=== PATIENT | female | born 1975 | race Caucasian/White ===

== ENCOUNTER 2017-01-26 08:40 | Emergency (ER) | payer OTHER ==
[2017-01-26 08:54] VITALS: BP 123/78
--- NOTE | 2017-01-26 09:24 | UC ---
Throat Pain/Nasal [place] HPI - HPI Summary HPI Summary: complaint of sore throat that started 3 days ago throat pain is worsening today bilateral ear pain feels fatigued denies nasal congestion and cough denies fever, N/V/D not taking any medications for pain close contact with strep - History of Current Complaint Chief Complaint: UCRespiratory Stated Complaint: SORE THROAT Time Seen by Provider: 01/26/17 09:15 Hx Obtained From: Patient Hx Last Menstrual Period: hx uterine ca 09/2007 - Allergies/Home Medications Allergies/Adverse Reactions: Allergies Allergy/AdvReac Type Severity Reaction Status Date / Time Penicillins Allergy Intermediate Hives Verified 01/26/17 08:54 Home Medications: Home Medications Fluticasone Propionate (Nasal) [Flonase Allergy Relief] 50 mcg BOTH NARES SEE INSTRUCTIONS PRN 01/26/17 [History Confirmed 01/26/17] Loratadine [Claritin 10 MG CAP] 10 mg PO PRN 01/26/17 [History] Multiple Vitamins W/ Minerals [Icaps Lutein & Zeaxanthin] 1 tab PO DAILY [History Confirmed 01/26/17] PMH/Surg Hx/FS Hx/Imm Hx Previously Healthy: Yes Cardiovascular History Of: Reports: Cardiac Disorders - VSD as a child Respiratory History Of: Reports: Asthma - has had pneumonia - Surgical History Surgical History: Yes Surgery Procedure, Year, and Place: hernia repair. hysterectomy, nasal surgery as a child unclear adenoids - Family History Known Family History: Positive: Cardiac Disease - mother CHF Negative: Hypertension, Diabetes - Social History Occupation: Employed Full-time Alcohol Use: Occasionally Substance Use Type: None Smoking Status (MU): Never Smoked Tobacco Review of Systems Constitutional: Negative Skin: Negative Eyes: Negative ENT: Sore Throat Respiratory: Negative Cardiovascular: Negative Gastrointestinal: Negative Genitourinary: Negative Motor: Negative Neurovascular: Negative Musculoskeletal: Negative Neurological: Negative Psychological: Negative All Other Systems Reviewed And Are Negative: Yes Physical Exam Triage Information Reviewed: Yes Appearance: No Pain Distress, Well-Nourished Vital Signs: Initial Vital Signs Temp 98.9 F 01/26/17 08:49 Pulse 84 01/26/17 08:49 Resp 16 01/26/17 08:49 BP 123/78 01/26/17 08:49 Pulse Ox 99 01/26/17 08:49 Vital Signs Reviewed: Yes Eyes: Positive: Conjunctiva Clear ENT: Positive: Pharyngeal erythema, TMs normal, Tonsillar swelling, Tonsillar exudate Dental: Positive: Cervical Lymphadenopathy Respiratory: Positive: Lungs clear, Normal breath sounds, No respiratory distress, No accessory muscle use Cardiovascular: Positive: RRR, No Murmur, Pulses Normal Abdomen Description: Positive: Nontender, Soft Bowel Sounds: Positive: Present Musculoskeletal: Positive: No Edema Neurological: Positive: Alert Psychological Exam: Normal Skin Exam: Normal Throat Pain/Nasal Course/Dx - Differential Dx/Diagnosis Differential Diagnosis/HQI/PQRI: Pharyngitis, Tonsillitis Provider Diagnoses: strep pharyngitis Discharge - Discharge Plan Condition: Stable Disposition: HOME Prescriptions: Clarithromycin TAB* [Biaxin 250 MG TAB*] 250 mg PO BID #20 tab Patient Education Materials: Strep Throat (ED) Referrals: Chitra Cornejo MD [Primary Care Provider] - Additional Instructions: STREPTOCOCCAL PHARYNGITIS (Strep Throat) What is Strep Throat? Strep throat is an infection of the throat and/or tonsils caused by Streptococcus bacteria. Strep throat is contagious and can be passed from one person to another through coughing and sneezing. Infections that are caused by bacteria require antibiotics to be cured. You remain contagious until you have taken antibiotics for at least 24 hours. Symptoms Might Include: Pain in the throat area Swelling of the glands in the neck Pain with swallowing Fever Fatigue Ear pain White spots on your tonsils (caused by pus) Treatment Recommendations: An antibiotic may have been prescribed. The antibiotic should be taken until it is completely gone, even if you feel better. If you stop the antibiotic early , you may not cure the infection completely. Gargle with warm saltwater (place 1 tsp. of salt in a large glass of warm water ) every 3 to 4 hours. Take acetaminophen (Tylenol, Tempra) for pain and fever. Drink lots of fluids. Do not smoke. Use throat lozenges (Cepostat, [place], etc.) or suck on hard candy for temporary relief of the pain of swallowing. Dispose of used tissues immediately. Cover your mouth when coughing or sneezing. Wash hands frequently. Call Your Doctor or Return Here IF: Your symptoms do not improve within 2 days or you become worse. You have a fever over 101.0 F orally. You are unable to swallow liquids or saliva. You are drooling. You develop trouble breathing. You develop a rash. You develop a stiff neck. You develop pain in your chest. You develop any symptoms that are new or that concern you lands in the neck Your blood pressure is pre-hypertensive reading. Please contact your primary care provider within 1 day -4 weeks for further evaluation
== END 2017-01-26 09:49 | disposition home or self-care (01) ==
LOC: UCEAST 08:40
DX: J02.0 Streptococcal pharyngitis (principal); Z88.0 Allergy status to penicillin; Z90.710 Acquired absence of both cervix and uterus
CPT/HCPCS: 87651; 99212; G0463